=== PATIENT | male | born 1990 ===

== ENCOUNTER 2018-07-31 13:51 | Emergency (ER) | payer SELFPAY ==
--- NOTE | 2018-07-31 14:49 | UC ---
Upper Extremity HPI - HPI Summary HPI Summary: 28-year-old male presents with complaints of left thumb pain after accidentally shutting the tip of the thumb in a gate on 07/29/2018. Reports constant throbbing pain with swelling and ecchymosis under the finger nail. Denies fever , chills, numbness, tingling, bleeding or purulent drainage. - History of Current Complaint Chief Complaint: UCUpperExtremity Stated Complaint: HAND INJURY Time Seen by Provider: 07/31/18 14:48 Hx Obtained From: Patient Onset/Duration: Sudden Onset, Lasting Days - 2 Severity Currently: Moderate Pain Intensity: 4 Character: Throbbing Alleviating Factor(s): Nothing Associated Signs And Symptoms: Positive: Swelling, Bruising. Negative: Redness , Fever, Weakness, Numbness/Tingling - Allergies/Home Medications Allergies/Adverse Reactions: Allergies Allergy/AdvReac Type Severity Reaction Status Date / Time No Known Allergies Allergy Verified 07/31/18 14:13 Home Medications: Home Medications Ibuprofen 400 mg PO ONCE PRN 07/31/18 [History Confirmed 07/31/18] PMH/Surg Hx/FS Hx/Imm Hx Previously Healthy: Yes - Denies significant PMH - Surgical History Surgical History: None - Family History Known Family History: Positive: Non-Contributory - Social History Occupation: Employed Full-time Lives: Alone Alcohol Use: None Substance Use Type: None Smoking Status (MU): Never Smoked Tobacco Review of Systems All Other Systems Reviewed And Are Negative: Yes Skin: Positive: Bruising Motor: Negative: Weakness Neurovascular: Negative: Decreased Sensation Musculoskeletal: Positive: Other: - See HPI. Negative: Decreased ROM Is Patient Immunocompromised?: No Physical Exam Triage Information Reviewed: Yes Appearance: Well-Appearing, No Pain Distress, Well-Nourished Vital Signs: Initial Vital Signs Temp 98 F 07/31/18 14:07 Pulse 84 07/31/18 14:07 Resp 18 07/31/18 14:07 BP 117/68 07/31/18 14:07 Pulse Ox 100 07/31/18 14:07 Respiratory: Positive: Lungs clear, Normal breath sounds, No respiratory distress Cardiovascular: Positive: RRR, No Murmur, Pulses Normal, Brisk Capillary Refill Musculoskeletal: Positive: Strength Intact, ROM Intact, Other: - Subungual hematoma involving entirity of left thumb nail. No gross deformity noted. Neurological: Positive: Alert, Other: - Sensation intact distally. Skin: Positive: Other - See above Procedures - Procedure Summary Procedure Summary: Trephination of subungual hematoma to the left fingernail was performed using an electric cautery after the nail was prepped using Betadine. Large amount of blood was evacuated and patient reported improvement in pain and pressure. The wound was cleansed post-procedure with soap and water. An elastic gauze dressing was applied. Wound care and warning symptoms were reviewed with patient. Tolerated procedure well without complication. Diagnostics - Radiology No standard instances Radiology Interpretation Completed By: ED Physician - Negative fracture, Radiologist Summary of Radiographic Findings: Patient Name: CARL DEL TORO . Ordering Physician: Austin Matos NP Acct.#: [id number]. : 1990 Age: 28 Sex: M Location: [facility]. Exam Date: 07/31/18 1452 ADM Status: REG ER. Order Information: THUMB LEFT. Accession Number: [id number]. CPT: 65116. Indication: LEFT thumb pain following injury tip of the thumb. Comparison: No relevant prior exams available on the [facility] for comparison. Technique: AP, lateral, and oblique views LEFT thumb. Report: Normal articular alignment and preserved joint spaces. Negative for fracture. Mild. soft tissue swelling from the proximal phalanx through the tip. No subcutaneous emphysema. or conspicuous foreign body. IMPRESSION: #. Soft tissue swelling without additional radiographic abnormality. Upper Extremity Course/Dx - Course Course Of Treatment: 28 year old male with crush injury to his left distal thumb 2 days ago causing a subungual hematoma. X-ray was negative for fracture. A trephination of the fingernail was performed and a large amount of blood was evacuated from beneath the fingernail. Patient reported improvement in pain and pressure. Patient was informed of the possibility of nail loss. Wound care and warning symptoms were reviewed with the patient. Verbalizes understanding and agrees with POC. - Differential Dx/Diagnosis Differential Diagnosis/HQI/PQRI: Contusion, Fracture (Closed) Provider Diagnoses: Subungual hematoma left thumb Discharge - Sign-Out/Discharge Documenting (check all that apply): Patient Departure All imaging exams completed and their final reports reviewed: Yes - Discharge Plan Condition: Stable Disposition: HOME Patient Education Materials: Subungual Hematoma (ED) Referrals: No Primary Care Phys,NOPCP [Primary Care Provider] - [facility] [Outside] Additional Instructions: The x-ray of your thumb showed no evidence of a fracture. Your pain is from a subungual hematoma (collection of blood under the fingernail) from the injury. I performed a procedure called a trephination of the finger nail in which a small hole was drilled into the nail to drain some of the blood and relieve the pressure. Blood may continue to drain from the hole over the next 24-48 hours. Keep the finger nail covered with a Band-Aid. There is a chance that the fingernail may fall off. If this occurs be sure to keep the nail bed covered until the nail grow back in a few months. Use an over the counter pain medication such as acetaminophen (Tylenol) or ibuprofen (Advil, Motrin) according to directions as needed for pain. I have given you the number for the [facility] to establish with a primary care provider if you need any follow up care. Watch for signs of infection including fever greater than 100.5 F, pain that is not managed with pain medication, redness that spreads, increased swelling, pus draining from wound, or any worsening of symptoms. - Billing Disposition and Condition Condition: STABLE Disposition: Home
== END 2018-07-31 16:25 | disposition home or self-care (01) ==
LOC: UCEAST 13:51
DX: S60.112A Contusion of left thumb with damage to nail, initial encounter (principal); W23.1XXA Caught, crushed, jammed, or pinched between stationary objects, initial encounter; Y93.89 Activity, other specified; Y92.9 Unspecified place or not applicable
CPT/HCPCS: 11740; 99201; G0463